=== PATIENT | male | born 1970 | race Caucasian/White ===

== ENCOUNTER → 2019-07-22 | Outpatient (CLI) | payer OTHER ==
--- NOTE | 2019-07-22 10:45 | CARD ---
MR#: [id number] Date of Study: 07/22/2019 Ordering Physician: DIANA TAYLOR, Referring Physician: DIANA TAYLOR Tech: Charlie Turcios [facility] APPROVED REPORT EXAM: Two-dimensional and M-mode echocardiogram with Doppler and color Doppler. Other Information Quality : AverageHR: 94bpm Rhythm : NSR INDICATION Dyspnea edema 2D DIMENSIONS Left Atrium(2D)4.5 (1.6-4.0cm)IVSd1.2 (0.7-1.1cm) Aortic Root(2D)3.4 (2.0-3.7cm)LVDd4.9 (3.9-5.9cm) PWd1.2 (0.7-1.1cm)LVDs3.6 (2.5-4.0cm) FS (%) 25.6 %SV56.5 ml LVEF(%)50.3 (>50%) Aortic Valve AoV Peak Damian.157.6cm/Azra Peak GR.9.9mmHg LVOT Peak Damian.111.0cm/s Mitral Valve MV E Mcsjvuuo35.5cm/sMV DECEL [id number] MV A Cfjhvfrq23.6cm/sE/A Ratio1.2 MV A Liikcllt901hk Pulmonary Valve PV Peak Nhkbxgyj52.7cm/s Tricuspid Valve TR P. Sgabvvgr964ig/sRAP ADPCHUOH0kvUa TR Peak Gr.99kuAvECOT11axSa Pulmonary Vein S1 Qcdnentx98.7cm/sD2 Qapthngh00.4cm/s PVa qpzicfjv745teup LEFT VENTRICLE The left ventricle is normal size. There is borderline to mild concentric left ventricular hypertroph y. The left ventricular systolic function is normal. The Ejection Fraction is 55%. There is normal LV segmental wall motion. The left ventricular diastolic function and filling is normal for age. RIGHT VENTRICLE The right ventricle is normal size. There is normal right ventricular wall thickness. The right ventr icular systolic function is normal. ATRIA The left atrium size is borderline dilated. The right atrium size is normal. The interatrial septum i s intact with no evidence for an atrial septal defect or patent foramen ovale as noted on 2-D or Dopp ler imaging. AORTIC VALVE The aortic valve is normal in structure and function. No aortic regurgitation is present. There is no aortic valvular stenosis. There is no aortic valvular vegetation. MITRAL VALVE The mitral valve is normal in structure and function. There is no evidence of mitral valve prolapse. There is no mitral valve stenosis. There is no mitral valve regurgitation noted. TRICUSPID VALVE The tricuspid valve is normal in structure and function. Doppler and Color Flow revealed trace tricus pid regurgitation with PAP of 30 mmHg. There is no tricuspid valve prolapse or vegetation. There is n o tricuspid valve stenosis. PULMONIC VALVE The pulmonary valve is normal in structure and function. There is no pulmonic valvular regurgitation. There is no pulmonic valvular stenosis. GREAT VESSELS The aortic root is normal in size. The ascending aorta is normal in size. The pulmonary artery is nor mal. The IVC is normal in size and collapses >50% with inspiration. PERICARDIAL EFFUSION There is no pleural effusion. There is no evidence of significant pericardial effusion. Critical Notification Critical Value: No <Conclusion> The left ventricular systolic function is normal. The Ejection Fraction is 55%. There is normal LV segmental wall motion. Trace tricuspid regurgitation with PAP of 30 mmHg. There is no evidence of significant pericardial effusion. Signed by : Noman Fair, Electronically Approved : 07/22/2019 10:45:20
== END | disposition home or self-care (01) ==
LOC: ECHO 09:51
PROVIDERS: ATTEND Family Medicine
DX: I51.7 Cardiomegaly (principal)
CPT/HCPCS: 93306